=== PATIENT | female | born 1950 | race Two or more races ===

== ENCOUNTER 2025-05-16 12:44 | Outpatient (CLI) | payer OTHER | END 2025-05-16 12:53 | disposition home or self-care (01) | LOC: MAMO-SONO 12:44 | PROVIDERS: ATTEND Specialist | DX: N60.39 Fibrosclerosis of unspecified breast (principal); Z12.39 Encounter for other screening for malignant neoplasm of breast; Z12.31 Encounter for screening mammogram for malignant neoplasm of breast ==

== ENCOUNTER 2025-08-17 07:06 | Outpatient (CLI) | payer OTHER | END 2025-08-17 07:07 | disposition home or self-care (01) | LOC: NUCLEAR 07:06 | PROVIDERS: ATTEND Internal Medicine | DX: I20.9 Angina pectoris, unspecified (principal) | CPT/HCPCS: 78452; 93017; A9500 ==